=== PATIENT | male | born 1965 | race Caucasian/White ===

== ENCOUNTER 2021-01-08 12:55 | Outpatient (RCR) | payer MEDICARE, MEDICAID, SELFPAY | END 2021-01-13 14:00 | disposition home or self-care (01) | LOC: HO.WCC 12:55 | PROVIDERS: PCP Family Medicine; Visit Provider Surgery | DX: E11.621 Type 2 diabetes mellitus with foot ulcer (principal); L97.519 Non-pressure chronic ulcer of other part of right foot with unspecified severity; M72.2 Plantar fascial fibromatosis; F12.90 Cannabis use, unspecified, uncomplicated; F17.200 Nicotine dependence, unspecified, uncomplicated; Z79.4 Long term (current) use of insulin | CPT/HCPCS: 99202; 99212 ==

== ENCOUNTER 2021-01-19 09:04 | Outpatient (REF) | payer MEDICARE, MEDICAID, SELFPAY ==
[2021-01-19 09:37] LABS: MANUAL DIFF FLAG NO
[2021-01-19 09:41] LABS: Basophils Absolute Auto 0.1 X10*3/uL (0.0-0.2); Basophils Percent Auto 1.1 % (0-2); Eosinophils Absolute Auto 0.7 X10*3/uL (0.0-0.4); Eosinophils Percent Auto 10.2 % (0-4); Hematocrit 39.3 % (42-52); Hemoglobin 13.5 g/dl (14.0-18.0); Imm Gran Abs Auto 0.04 X10*3/uL (0.00-0.03); Imm Gran Pct Auto 0.6 % (0.0-0.4); Lymphocytes Absolute Auto 1.8 X10*3/uL (1.2-4.9); Lymphocytes Percent Auto 27.3 % (20-40); Mean Corpuscular HGB Conc 34.4 g/dl (31.0-36.0); Mean Corpuscular Hemoglobin 31.5 pg (27.0-33.0); Mean Corpuscular Volume 91.6 fL (80-98); Mean Platelet Volume 9.2 fL (9.4-12.4); Monocytes Absolute Auto 0.5 X10*3/uL (0.1-1.2); Monocytes Percent Auto 7.3 % (2-11); Neutrophils Absolute Auto 3.5 X10*3/uL (2.0-8.3); Neutrophils Percent Auto 53.5 % (45-73); Platelet Count 281 X10*3/uL (160-400); Red Blood Count 4.29 X10*6/uL (4.60-5.80); Red Cell Distribution Width 12.5 % (11.0-16.0); White Blood Count 6.6 X10*3/uL (4.8-10.8)
[2021-01-19 09:55] LABS: Estimated Average Glucose 283 mg/dL; Hemoglobin A1c % 11.5 %
[2021-01-19 10:14] LABS: Anion Gap 14 (12-20); Blood Urea Nitrogen 14 mg/dL (9-16); C Reactive Protein 0.06 mg/dL (< or = 0.50); Carbon Dioxide 28 mmol/L (22-29); Chloride 100 mmol/L (96-108); Estimated Glomerular Filt Rate > 60; Glucose Random 289 mg/dL (60-115); Potassium 4.8 mmol/L (3.3-5.1); Sodium 137 mmol/L (135-145)
[2021-01-19 10:31] LABS: Erythrocyte Sedimentation Rate 14 MM/HR (0-15)
== END 2021-01-19 09:05 | disposition home or self-care (01) ==
LOC: HO.LAB 09:04
PROVIDERS: PCP Family Medicine; Visit Provider Physician Assistant
DX: Z01.812 Encounter for preprocedural laboratory examination (principal)
CPT/HCPCS: 36415; 80048; 83036; 84134; 85025; 85652; 86140

== ENCOUNTER 2021-01-20 09:28 | Outpatient (REF) | payer MEDICARE, MEDICAID, SELFPAY ==
--- NOTE | ~2021-01-20 | MR_ITS ---
EXAMINATION: MRI FOOT WITHOUT AND WITH CONTRAST, RIGHT CLINICAL INFORMATION: Right foot pain, plantar fasciitis. Evaluate for osteomyelitis 2nd and 3rd MTP. Patient reports history of infection in toes 1 month ago, now muscles and foot and up to thigh won't stretch out. COMPARISON: None TECHNIQUE: MRI of the right foot was performed before and after the intravenous administration of 7.5 mL of Gadavist on a high-field scanner. FINDINGS: There is patchy edema in the subcutaneous tissues plantar to the 2nd proximal phalanx with some extension toward the 3rd proximal phalanx. There is an irregular area of nonenhancement involving the skin and underlying subcutaneous tissues within this region of edema measuring 0.7 x 1.5 x 1.0 cm (CC x TRV x AP). There is a thin rim of enhancement around this region of nonenhancement. This is not clearly fluid signal intensity on the STIR images. This may represent a region of deep ulceration or devitalized tissue. A rim-enhancing abscess may also be considered, but this does not appear to be fluid signal intensity on the STIR images. There is no evidence of bone marrow edema, with specific attention to the 2nd and 3rd MTP joints and toes. MR/MR foot RT wo/w con IMPRESSION: 1. Soft tissue abnormality plantar to the 2nd proximal phalanx extending toward the 3rd proximal phalanx, as described in detail above. There is an irregular area of nonenhancement which may represent deep ulceration or devitalized tissue. A complex abscess may also be considered although appears less likely since this does not appear to demonstrate fluid signal intensity on the STIR images. Correlate clinically. 2. No MRI evidence of osteomyelitis.
== END 2021-01-20 09:29 | disposition home or self-care (01) ==
LOC: HO.MRI 09:28
PROVIDERS: Visit Provider Physician Assistant
DX: M72.2 Plantar fascial fibromatosis (principal)
CPT/HCPCS: 73720; A9585